=== PATIENT | female | born 1940 | race Hispanic/Latino ===

== ENCOUNTER 2020-07-25 20:57 | Emergency (ER) | payer OTHER ==
[~2020-07-25] VITALS: Ht 157.5 cm; Wt 54.0 kg
[2020-07-25] MEDS ORDERED: SODIUM CHLORIDE 0.9% 1000ML 1,000 ML IV STA (21:24)
[2020-07-25] MEDS ORDERED: SODIUM CHLORIDE 0.9% 1000ML 1,000 ML ONE (21:37)
[2020-07-25 23:18] VITALS: BP 162/70
== END 2020-07-25 23:18 | disposition home or self-care (01) ==
LOC: FSED 21:24
DX: R53.1 Weakness (principal); E86.0 Dehydration
CPT/HCPCS: 70450; 93005; 99284; J7030; 80053; 85025

== ENCOUNTER → 2023-01-19 | Outpatient (RCR) | payer MEDICARE | LOC: PT 01-07 12:51 | PROVIDERS: ATTEND Specialist | DX: M17.12 Unilateral primary osteoarthritis, left knee (principal) ==

== ENCOUNTER 2023-02-10 12:44 | Outpatient (RCR) | payer MEDICARE | END 2023-02-18 | LOC: PT 12:44 | PROVIDERS: ATTEND Specialist | DX: M17.12 Unilateral primary osteoarthritis, left knee (principal) ==